=== PATIENT | male | born 1955 | race Caucasian/White ===

== ENCOUNTER → 2016-07-24 08:27 | Outpatient (CLI) | payer BC | END | disposition home or self-care (01) | LOC: D.US 08:27 | DX: K76.0 Fatty (change of) liver, not elsewhere classified (principal); R10.9 Unspecified abdominal pain ==

== ENCOUNTER 2016-11-09 05:53 | Day surgery (SDC) | payer BC ==
[~2016-11-09] VITALS: Ht 182.9 cm; Wt 141.5 kg
[~2016-11-09 05:53] MED LIST: AMBIEN10 MG PO
[2016-11-09 08:33] VITALS: BP 130/82; Ht 182.9 cm; Wt 141.5 kg
[2016-11-09] MEDS ORDERED: NORCO 7.5/325 T1 TA1 PO (11:26)
--- NOTE | 2016-11-09 21:34 | OP ---
PATIENT NAME: DONNA BHATTI MEDICAL RECORD: [id number] :57 LOCATION:.[facility] ADMISSION DATE: SURGEON: HARDEEP MCCORMICK MD DATE OF OPERATION: 11/09/2016 SURGEON: Hardeep Mccormick MD. PREOPERATIVE DIAGNOSES: 1. Cholelithiasis. 2. Chronic vomiting. 3. Right upper quadrant pain. POSTOPERATIVE DIAGNOSES: 1. Cholelithiasis. 2. Chronic vomiting. 3. Right upper quadrant pain. PROCEDURE PERFORMED: Laparoscopic cholecystectomy. ANESTHESIA: General. COMPLICATIONS: None. SPECIMENS: Gallbladder. Case is clean contaminated. ESTIMATED BLOOD LOSS: 40 cc. OPERATIVE COURSE: After consent was obtained, the patient was taken to the operating room and placed in the supine position on the operating table. Next, general anesthesia was given via endotracheal intubation after a timeout was performed that confirmed the correct patient and procedure. The abdomen was prepped and draped in typical sterile fashion. A stab incision was made above the umbilicus with 11-blade scalpel. Using a 5-mm bladeless optical trocar, the abdomen was entered under direct laparoscopic vision. Adequate pneumoperitoneum was achieved. The abdominal cavity was inspected. No evidence of bowel injury. No evidence of bleeding. At this time, all remaining trocars were placed after the administration of local anesthetic under direct laparoscopic vision, two 5-mm trocars in the right upper quadrant and 11-mm trocar in the subxiphoid position. The fundus of the gallbladder was grasped and retracted cephalad. The infundibulum was grasped and retracted laterally. The peritoneum was incised using electrocautery. Blunt dissection was performed until the critical view was obtained. Cystic duct lateral, cystic artery medial, liver in the posterior window. At this time, 3 clips were placed in the proximal cystic artery, 1 clip distal, 2 clips were placed in the proximal cystic duct, 1 clip distal. The duct and artery was then transected with laparoscopic Metzenbaum scissors. The remaining portion of the gallbladder was then dissected off the liver bed using electrocautery. The gallbladder was then grasped with the tenaculum and removed through the 11-mm trocar and sent for permanent pathology. Next, the operative field was copiously irrigated and suctioned. Careful attention was paid to hemostasis, which was obtained from the liver bed using electrocautery. The abdominal cavity was inspected. No evidence of bowel injury. No evidence of bleeding. The operative site was again irrigated and suctioned. The clips were in place on both the artery and the duct. There was OPERATIVE REPORT [id number] DONNA BHATTI no evidence of bowel injury. No evidence of bleeding, no evidence of bile leak. At this time, all remaining instruments were removed. The abdomen was desufflated. Trocars removed. Skin was closed with 4-0 Monocryl, Mastisol and Steri-Strips. At the end of the case, all needle and instrument counts were correct. No complications occurred. The patient was extubated and transferred to the PACU in stable condition. TRANSINT:[id number] Voice Confirmation ID: [id number] DOCUMENT ID: [id number] HARDEEP MCCORMICK MD at 2134 CC: [id number] DICTATION DATE: 11/09/16 1[employer]: 11/09/162012 [facility] 11/09/16 [id number] [place] [address]
== END 2016-11-09 14:10 | disposition home or self-care (01) ==
LOC: D.OPS 05:53 → D.PAN 09:30 → D.OPS 14:10
DX: K80.20 Calculus of gallbladder without cholecystitis without obstruction (principal); R10.11 Right upper quadrant pain; R11.10 Vomiting, unspecified; Z01.812 Encounter for preprocedural laboratory examination

== ENCOUNTER → 2016-11-27 12:57 | Outpatient (CLI) | payer BC ==
[2016-11-09 08:33] VITALS: BMI 42.4
[~2016-11-27 12:57] MED LIST changes: +NORCO 7.5/325 T1 TA1 PO
== END | disposition home or self-care (01) ==
LOC: D.NM 12:57
DX: R11.2 Nausea with vomiting, unspecified (principal); R10.9 Unspecified abdominal pain